=== PATIENT | male | born 1930 | race African-American/Black ===

== ENCOUNTER 2017-03-21 00:09 | Emergency (ER) | payer MEDICARE, OTHER ==
[2017-03-21] MEDS ORDERED: methylPREDNISolone Sod Succ/PF 125 MG/2 ML VIAL ONE (00:55)
[2017-03-21 01:00] LABS: Actual Bicarbonate (HCO3v) 29 mEq/L (24-30); Base Excess 1.5 mEq/L (-2 - +2)
[2017-03-21 01:03] LABS: Hemoglobin (Hb) 14.2 g/dL (12.6-17.4)
[2017-03-21 01:11] LABS: ALT (SGPT) 13 U/L (8-55); AST (SGOT) 22 U/L (5-34); Albumin 4.3 g/dL (3.4-4.8); Alkaline Phosphatase 93 U/L (40-150); Anion Gap 14 mmol/L (10-20); BUN (Urea Nitrogen) 14 mg/dL (8.4-25.7); Bilirubin, Total 1.7 mg/dL (0.2-1.2); Calc. Creatinine Clearance 0 mL/min (70-130); Calcium 9.1 mg/dL (7.8-10.44); Carbon Dioxide 27 mmol/L (23-31); Chloride 107 mmol/L (98-107); Estimated GFR-MDRD 59; Globulin 2.8 g/dL (2.4-3.5); Glucose 120 mg/dL (83-110); Hemoglobin 14.4 g/dL (14.0-18.0); Mean Corpuscular HGB CONC 35.7 g/dL (32.0-36.0); Mean Corpuscular Hemoglobin 34.8 pg (27.0-31.0); Mean Corpuscular Volume 97.4 fl (80.0-94.0); Mean Platelet Volume 6.3 fL (7.4-10.4); Platelet Count 92 thou/uL (130-400); Potassium 3.5 mmol/L (3.5-5.1); Protein, Total 7.1 g/dL (5.8-8.1); Red Blood Cell (RBC) Count 4.14 mill/uL (4.70-6.10); Sodium 144 mmol/L (136-145); White Blood Cell (WBC) Count 7.1 thou/uL (4.8-10.8)
[2017-03-21 01:14] LABS: Troponin I Less than 0.010 ng/mL (< 0.028)
[2017-03-21 01:22] LABS: #Basophils 0.1 thou/uL (0.0-0.2); #Eosinphils 0.1 thou/uL (0.0-0.7); #Lymphocytes 1.8 thou/uL (1.20-3.40); #Monocytes 0.4 thou/uL (0.11-0.59); #Neutrophils 4.7 thou/uL (1.40-6.50); %Basophils 0.9 % (0.0-1.0); %Eosinophils 1.8 % (0.0-10.0); %Lymphocytes 25.5 % (21.0-51.0); %Monocytes 5.2 % (0.0-10.0); %Neutrophils 66.6 % (42.0-75.0); PLT Morphology Comment Appears Decreased; RBC Morphology Normal
[2017-03-21 01:27] LABS: MDiff Complete? YES; Manual Diff?? NO
[2017-03-21 01:40] LABS: Bilirubin Negative (Negative); Blood, Urine Moderate (Negative); Clarity Hazy (Clear); Glucose, Urine (Dipstick) Negative (Negative); Leukocyte Trace (Negative); Nitrite Negative (Negative); Protein, Urine (Dipstick) > or equal to 300 mg/dL (Neg-Trace); Specific Gravity, Urine 1.025 (1.005-1.030); Urobilinogen 0.2 mg/dL (0.2-1.0); pH, Urine 5.5 (5.0-9.0)
[2017-03-21 01:47] LABS: Bacteria/HPF Rare-Few HPF (None Seen); Squamous Epithelial 0-3 HPF (0-3); Transitional Epithelial 0-3 HPF (0-3); WBC/HPF 0-3 HPF (0-3); Yeast-All Forms 2+ HPF (None Seen)
[2017-03-21 01:48] LABS: Other Microscopic Description 1+ MUCUS
--- NOTE | 2017-03-21 08:45 | RAD ---
CHEST ONE VIEW: History: Shortness of breath. Comparison: 10-17-16 FINDINGS: Lungs are without focal airspace consolidation, pneumothorax or effusion. Cardiac silhouette and med iastinal contours are similar. Cardiac device is similar. No displaced rib fracture. IMPRESSION: No significant change in the radiographic appearance of the chest. No focal airspace consolidation. POS: [facility]
== END 2017-03-21 02:16 | disposition home or self-care (01) ==
LOC: BURERS 00:09
DX: J44.1 Chronic obstructive pulmonary disease with (acute) exacerbation (principal); I48.91 Unspecified atrial fibrillation; E78.5 Hyperlipidemia, unspecified; I10 Essential (primary) hypertension; J45.909 Unspecified asthma, uncomplicated
CPT/HCPCS: 71010; 80053; 81003; 81015; 82553; 82805; 84484; 85025; 87086; 93005; 96374; J2930; J7620

== ENCOUNTER 2017-03-26 16:52 | Emergency (ER) | payer MEDICARE, OTHER ==
[2017-03-26 17:30] LABS: INR-International Normal Ratio 1.5; PTT 29.3 SEC (22.9-36.1); Prothrombin Time 18.3 SEC (12.0-14.7)
[2017-03-26 17:36] LABS: Base Excess 4.5 mEq/L (-2 - +2); Hemoglobin (Hb) 12.9 g/dL (12.6-17.4)
[2017-03-26 17:40] LABS: ALT (SGPT) 36 U/L (8-55); AST (SGOT) 27 U/L (5-34); Albumin 3.6 g/dL (3.4-4.8); Alkaline Phosphatase 68 U/L (40-150); Anion Gap 14 mmol/L (10-20); BUN (Urea Nitrogen) 21 mg/dL (8.4-25.7); Bilirubin, Total 1.3 mg/dL (0.2-1.2); Calc. Creatinine Clearance 0 mL/min (70-130); Carbon Dioxide 25 mmol/L (23-31); Chloride 110 mmol/L (98-107); Estimated GFR-MDRD 60; Globulin 2.9 g/dL (2.4-3.5); Glucose 96 mg/dL (83-110); Potassium 3.4 mmol/L (3.5-5.1); Protein, Total 6.5 g/dL (5.8-8.1); Sodium 146 mmol/L (136-145)
[2017-03-26 17:44] LABS: CKMB 1.1 ng/mL (0-6.6); Troponin I Less than 0.010 ng/mL (< 0.028)
[2017-03-26 17:48] LABS: Eosinophils 1 % (0-10); Hemoglobin 13.5 g/dL (14.0-18.0); Lymphocytes 34 % (21-51); MDiff Complete? YES; Macrocytosis SLIGHT = 6-15 cells (100X) (0-5/hpf); Mean Corpuscular Hemoglobin 34.2 pg (27.0-31.0); Mean Corpuscular Volume 97.7 fl (80.0-94.0); Monocytes 10 % (0-10); Neutrophil 55 % (42-75); Platelet Count 122 thou/uL (130-400); RBC Distribution Width 11.5 % (11.5-14.5); Red Blood Cell (RBC) Count 3.97 mill/uL (4.70-6.10); White Blood Cell (WBC) Count 4.9 thou/uL (4.8-10.8)
[2017-03-26] MEDS ORDERED: cefTRIAXone\\ROCEPHIN 1 GM VIAL ONE (18:09)
[2017-03-26] MEDS ORDERED: Sodium Chloride 0.9% 100 ML ONE (18:09)
[2017-03-26] MEDS ORDERED: Azithromycin 250 MG TAB ONE (18:14)
[2017-03-26 18:27] LABS: Blood, Urine Large (Negative); Clarity Slightly Cloudy (Clear); Glucose, Urine (Dipstick) Negative (Negative); Leukocyte Small (Negative); Nitrite Positive (Negative); Protein, Urine (Dipstick) > or equal to 300 mg/dL (Neg-Trace); Specific Gravity, Urine 1.025 (1.005-1.030); pH, Urine 5.5 (5.0-9.0)
[2017-03-26 18:37] LABS: Bilirubin Negative (Negative); RBC/HPF 21-50 HPF (0-3)
[2017-03-26 18:38] LABS: Bacteria/HPF 1+ HPF (None Seen); Crystals/HPF None Seen HPF (Negative); Hyaline Casts/LPF NONE SEEN LPF (0-3 Hyaline); Other Casts/LPF None Seen LPF (0-3 Hyaline); Oval Fat Bodies/HPF None Seen HPF (None Seen); Renal Epithelial None Seen HPF (0-3); Sperm/HPF None Seen HPF (None Seen); Transitional Epithelial NONE SEEN HPF (0-3); Trichomonas/HPF None Seen HPF (None Seen); Yeast-All Forms 2+ HPF (None Seen)
--- NOTE | 2017-03-26 19:40 | RAD ---
TWO VIEWS CHEST: Comparison: 11-03-15, 03-21-17 History: Increasing shortness of breath over the last few days, dyspnea. FINDINGS: Two views chest shows a normal sized cardiomediastinal silhouette. A pacemaker is seen with its lead s in the right atrium and right ventricle. Increased interstitial markings are present. There are po ssible developing superimposed opacities in the mid portion of the right lung. No pleural effusion i s seen. IMPRESSION: Possible developing right pulmonary infiltrate. POS: [facility]
== END 2017-03-26 19:22 | disposition home or self-care (01) ==
LOC: BURERS 16:52
DX: J18.0 Bronchopneumonia, unspecified organism (principal); I10 Essential (primary) hypertension; J45.909 Unspecified asthma, uncomplicated; E78.5 Hyperlipidemia, unspecified; Z79.82 Long term (current) use of aspirin; Z79.899 Other long term (current) drug therapy
CPT/HCPCS: 71020; 80053; 81003; 81015; 82553; 82805; 83605; 83880; 84484; 85025; 85610; 85730; 87040; 87086; 93005; 94760; 96365; J0696; J7050

== ENCOUNTER 2017-04-17 15:44 | Emergency (ER) | payer MEDICARE, OTHER ==
--- NOTE | 2017-04-17 20:38 | RAD ---
LEFT SHOULDER THREE VIEWS 04/17/17 No acute fracture or dislocation was seen. The AC joint is normal in width. There are some irregular ities along the superolateral aspect of the humeral head that could be a Hill-Sachs deformity from a prior dislocation. The adjacent lung is clear. IMPRESSION: Chronic changes but no acute findings. POS: HOME
== END 2017-04-17 16:54 | disposition home or self-care (01) ==
LOC: BURERS 15:44
DX: M25.512 Pain in left shoulder (principal); M19.90 Unspecified osteoarthritis, unspecified site; I48.91 Unspecified atrial fibrillation; E05.90 Thyrotoxicosis, unspecified without thyrotoxic crisis or storm; E78.5 Hyperlipidemia, unspecified; J45.909 Unspecified asthma, uncomplicated; I10 Essential (primary) hypertension

== ENCOUNTER 2017-04-28 12:54 | Outpatient (CLI) | payer MEDICARE, OTHER ==
--- NOTE | 2017-04-28 17:55 | RAD ---
CHEST TWO VIEWS 04/28/17 Comparison is made with prior studies of 03/26 and 03/21. The lungs are hyperexpanded as usual. The heart size is unchanged and there are no congestive findin gs or pleural effusions. There are no lobar infiltrates. On the 03/26 film, some patchy areas were seen in the right mid lung z one that were questioned for possible developing infiltrate. This is less evident today than before, however, there is an area where the inferior angle of the scapula and ribs overlap that I cannot te ll completely if this area is clear or not. Ultimately, the only way to be certain would be a CT (wh ich could be noncontrast). That might be worthy of consideration. At the very least, I would get ano ther followup chest film to keep an eye on the area. Otherwise, the lungs are clear. The heart size is normal. A cardiac pacer is in place. There are no congestive changes. IMPRESSION: 1. No definite acute findings. 2. Question of increased density right mid lung which may just be overlap of scapula and ribs. See discussion above and consider some sort of future followup. POS: HOME
== END 2017-04-28 12:55 | disposition home or self-care (01) ==
LOC: BURRAD 12:54
PROVIDERS: ATTEND Family Medicine
DX: J45.909 Unspecified asthma, uncomplicated (principal)
CPT/HCPCS: 71020